=== PATIENT | female | born 1995 | race Caucasian/White ===

== ENCOUNTER 2017-12-01 03:15 | Inpatient (IN) | payer BC ==
[2017-12-01] VITALS (16 sets, daily range): BP systolic 108–137; BP diastolic 54–73; PULSE 70–100; TEMP 97.6–98.4
[~2017-12-01] VITALS: Ht 180.3 cm; Wt 78.6 kg
[~2017-12-01 03:15] MED LIST: MOTRIN 600600 MG/TAB PO; PERCOCET 325 MG1 TA2 PO; PRENATAL PO
[2017-12-01 05:05] LABS: BASO # 0.1 (0.0-0.2); BASO % 0.6 % (0.0-2.0); EOS # 0.1 (0.0-0.7); EOS % 0.5 % (0-4.0); GRAN # 14.9 (1.4-6.5); GRAN % 74.8 % (42.2-75.2); LYMPH # 3.3 (1.2-3.4); LYMPH % 16.5 % (20.0-51.0); MEAN CELL VOLUME 84 fl (80.0-100.0); MEAN CORPUSCULAR HGB CONC 34 g/dl (33.0-37.0); MEAN PLATELET VOLUME 10.1 fl (7.4-10.4); MONO # 1.4 (0.1-0.6); PLATELET COUNT 295 K/mm3 (130-400); RED BLOOD COUNT 4.01 M/mm3 (4.10-5.30); REDCELL DISTRIBUTION WIDTH-CV 13.5 % (11.5-14.5)
[2017-12-01 05:07] LABS: HEMATOCRIT 33.5 % (37.0-47.0); HEMOGLOBIN 11.5 g/dl (12.5-16.0); MEAN CORPUSCULAR HEMOGLOBIN 29 pg (27.0-31.0)
[2017-12-02 03:40] VITALS: BP 115/67; PULSE 83; TEMP 98.3
[2017-12-02 08:00] VITALS: BP 119/75; PULSE 72; TEMP 98.1
[2017-12-02] MEDS ORDERED: IBU800 M1 PO (08:43)
[2017-12-02] MEDS ORDERED: PERCOCET 325 MG1 TA2 PO (08:44)
[2017-12-02] MEDS ORDERED: SENOKOT S 50 MG1 TAB PO (08:44)
== END 2017-12-02 13:55 | disposition home or self-care (01) | DRG 775 ==
LOC: LDRO 03:15 → LDR 04:41 → OB 09:45
PROVIDERS: Obstetrics & Gynecology
PROC: 10E0XZZ Delivery of Products of Conception, External Approach (ICD-10-PCS; principal; 2017-12-01)
DX: O69.81X0 Labor and delivery complicated by cord around neck, without compression, not applicable or unspecified (principal); Z3A.39 39 weeks gestation of pregnancy; Z37.0 Single live birth
CPT/HCPCS: J2590

== ENCOUNTER 2019-08-10 11:28 | Outpatient (CLI) | payer BC ==
[~2019-08-10] VITALS: Ht 180.3 cm; Wt 80.5 kg
[~2019-08-10 11:28] MED LIST changes: +IBU800 M1 PO; +SENOKOT S 50 MG1 TAB PO
--- NOTE | 2019-08-10 11:30 | NUR ---
PATIENT HERE FOR EXTERNAL VERSION. PATIENT CHANGED INTO GOWN, ON EFM, VITALS OBTAINED, PATIENT DENIES CONTRACTIONS, PATIENT DENIES LEAKING OF FLUID AND BLEEDING. ASSESMENT COMPLETE
[2019-08-10 11:46] VITALS: BP 99/56; PULSE 68; TEMP 97.5
[2019-08-10 12:00] VITALS: BP 99/56; PULSE 68; TEMP 97.5
[2019-08-10 12:30] VITALS: BP 103/58; PULSE 76
--- NOTE | 2019-08-10 12:49 | NUR ---
OFF EFM AT [address] ALMAZAN AND DR CASIANO. PATIENT ON EFM AT 1244
[2019-08-10 13:00] VITALS: BP 132/62; PULSE 101
[2019-08-10 13:30] VITALS: BP 109/54; PULSE 80; TEMP 98
[2019-08-10 13:45] VITALS: BP 105/56; PULSE 82
== END 2019-08-10 13:50 | disposition home or self-care (01) ==
LOC: LDRO 11:28
DX: O32.1XX0 Maternal care for breech presentation, not applicable or unspecified (principal); Z3A.37 37 weeks gestation of pregnancy
CPT/HCPCS: J3105

== ENCOUNTER 2019-09-03 10:52 | Outpatient (CLI) | payer BC ==
[~2019-09-03] VITALS: Ht 180.3 cm; Wt 83.2 kg
--- NOTE | 2019-09-03 10:55 | NUR ---
Patient arrives ambulatory with spouse for monitoring after report of falling down the stairs at 0800. Patient states she did not hit her abdomen at all. Reports small amount of bright red bleeding right after the fall when she went to the bathroom, but nothing since. Denies ROM. Reports increased movement since heading to the hospital. Patient changes into gown, EFM explained and placed. SVE by Ryann Levy RN , no blood noted on exam glove. Assessment completed. Reactive FHR strip noted. See physician notification. Patient updated on plan of care.
[2019-09-03 11:02] VITALS: BP 113/71; PULSE 89; TEMP 97.4
--- NOTE | 2019-09-03 12:00 | NUR ---
Reactive FHR strip noted over the past hour. Patient denies pain, contractions, or bleeding. Reports normal movement. Taken off EFM per order. Reviewed labor precuations and kick counts. PAtient denies questions. Leaves ambulatory at 1205.
[2019-09-03 12:01] VITALS: BP 113/71; PULSE 89; TEMP 97.7
== END 2019-09-03 12:05 | disposition home or self-care (01) ==
LOC: LDRO 10:52 → LDR 10:55 → LDRO 12:05
DX: O26.893 Other specified pregnancy related conditions, third trimester (principal); Z3A.40 40 weeks gestation of pregnancy
CPT/HCPCS: OP

== ENCOUNTER 2019-09-04 21:14 | Inpatient (IN) | payer BC ==
[~2019-09-04] VITALS: Ht 180.3 cm; Wt 82.3 kg
[2019-09-04 21:32] VITALS: BP 118/71; PULSE 77; TEMP 97.8
--- NOTE | 2019-09-04 21:35 | NUR ---
2134 G3L2 40.5 WEEK GEST TO LR3 WITH C/O REGULAR CONTRACTIONS. HAD MEMBRANES STRIPPED BY DR CASIANO AT 1400 AND STARTED EDELMIRA AT 1600. HAD A SUCCESSFUL VERSION AT 37 WEEKS. EFM ON. EDELMIRA EVERY 2-3 MINUTES AND UNCOMFORTABLE. SVE /-2. ADM ASSESSMENT DONE. 2144 DR LOCKWOOD NOTIFIED AND ADM ORDERS RECEIVED.
[2019-09-04 21:50] VITALS: BP 105/58; PULSE 82
--- NOTE | 2019-09-04 21:50 | NUR ---
2150 IV STARTED IN LEFT FOREARM. WANTING TO USE HOTTUB. PERMITS SIGNED
[2019-09-04 22:13] LABS: BASO # 0.1 (0.0-0.2); BASO % 0.3 % (0.0-2.0); EOS % 0.2 % (0-4.0); GRAN % 75.9 % (42.2-75.2); HEMATOCRIT 32.4 % (37.0-47.0); HEMOGLOBIN 10.7 g/dl (12.5-16.0); LYMPH # 2.7 (1.2-3.4); LYMPH % 15.8 % (20.0-51.0); MEAN CELL VOLUME 83 fl (80.0-100.0); MEAN CORPUSCULAR HEMOGLOBIN 27 pg (27.0-31.0); MEAN CORPUSCULAR HGB CONC 33 g/dl (33.0-37.0); MONO # 1.2 (0.1-0.6); MONO % 7.2 % (1.7-9.3); PLATELET COUNT 287 K/mm3 (130-400); RED BLOOD COUNT 3.92 M/mm3 (4.10-5.30); REDCELL DISTRIBUTION WIDTH-CV 13.7 % (11.5-14.5)
[2019-09-04 22:20] VITALS: BP 117/59; PULSE 80; TEMP 97.8
--- NOTE | 2019-09-04 22:30 | NUR ---
2230 UP TO HOT TUB. WATER TEMP 99.9.
--- NOTE | 2019-09-04 23:00 | NUR ---
This RN to whirlpool tub for evaluation. Water temperature 99.5 degrees. Maternal temp 98.0. FHR 150s by doppler. Updated on plan of care. Spouse supportive in tub room.
[2019-09-04 23:40] VITALS: BP 116/63; PULSE 98
--- NOTE | 2019-09-04 23:40 | NUR ---
8737 - 9111 Pt calls out from tub stating she feels shaky and is tearful thinks she needs to get out to be checked. Pt ambulated back to bed. SVE 4-5/-2. US and toco applied for intermittent monitoring. Category 1 FHR tracing obtained. Monitors removed after twenty minutes. Pt wishes to ambulate in room utilize birthing ball. Updated on plan of care.
[2019-09-05] VITALS (12 sets, daily range): BP systolic 108–123; BP diastolic 52–73; PULSE 77–98; TEMP 97.8–98.8
--- NOTE | 2019-09-05 00:10 | NUR ---
0010 STANDING AT SIDE OF BED STATING WATER BROKE. RETURNED TO BED AND EFM ON. SVE /-2 WITH NO FLUID NOTED ON VAG EXAM.
--- NOTE | 2019-09-05 00:40 | NUR ---
0025 - Dr. Hernandez notified of patients progress, see physician notification. 0035 - Pt breathing through contractions well. SVE /-1. Pt encouraged to focus on her breathing. 0038 - Pt having a hard time resisting urge to push, encouraged to continue breathing and maintain focus. Nursery RN, Shannon England at bedside. 0040 - Spontaneous vaginal delivery of viable girl. Care of to LANA Drake. 0041 - Dr. Hernandez at bedside, gowned and gloved for delivery of placenta. 0045 - Intact perineum per Dr. Hernandez. 0047 - Spontaneous delivery of intact placenta. Pitocin initiated at 333 mL/hr. Fundal massage by Dr. Hernandez. 0050 - Pericare provided. New chux pad beneath patient. Ice pack to perineum. Pt repositioned in bed for comfort. recovery started. See delivery note.
--- NOTE | 2019-09-05 03:00 | NUR ---
Pt able to walk to bathroom independently. Voided 600 mL. Educated patient on need of 3 measured voids. Pericare explained and provided. New gown on. Mesh panties and peripad on. Pt ambulated to room 207 independently with belongings.
--- NOTE | 2019-09-05 09:10 | NUR ---
Initial visit; Parents thanked [employer] for offering congratulations and God's blessings for the of their daughter. [employer] thanked family for choosing [facility].
[2019-09-06] MEDS ORDERED: MOTRIN 600600 MG/TAB PO (07:51)
[2019-09-06] MEDS ORDERED: PERCOCET 325 MG1 TA2 PO (07:51)
[2019-09-06 08:00] VITALS: BP 116/63; PULSE 72; TEMP 98
--- NOTE | 2019-09-06 10:00 | NUR ---
discharge instructions given. Pt verbalizes understanding. No further questions noted. Bands matched and hugs tag removed. 1030:Pt to personal vehicle.
== END 2019-09-06 10:30 | disposition home or self-care (01) | DRG 807 ==
LOC: LDRO 21:14 → LDR 21:31 → LDRO 21:52 → LDR 21:53 → OB 09-05 03:00
PROVIDERS: Obstetrics & Gynecology; ADMIT Obstetrics & Gynecology
PROC: 10E0XZZ Delivery of Products of Conception, External Approach (ICD-10-PCS; principal; 2019-09-04)
DX: O62.3 Precipitate labor (principal); Z37.0 Single live birth; O99.02 Anemia complicating childbirth; D64.9 Anemia, unspecified; Z3A.40 40 weeks gestation of pregnancy; Z23 Encounter for immunization
CPT/HCPCS: J2590; J7120